=== PATIENT | male | born 1995 | race Caucasian/White ===

== ENCOUNTER 2023-07-14 06:43 | Emergency (ER) | payer SELFPAY ==
[~2023-07-14] VITALS: Ht 185.4 cm; Wt 118.0 kg
[2023-07-14] MEDS ORDERED: ALBUTEROL (0.083%) 2.5MG/3ML NEB HHN STA (08:15)
[2023-07-14] MEDS ORDERED: IPRATROPIUM BROMIDE (0.02%) 0.5MG/2.5ML NEB HHN STA (08:15)
[2023-07-14] MEDS ORDERED: PREDNISONE 20MG TABLET PO STA (08:15)
[2023-07-14 09:05] VITALS: PULSE 88; RESP 20; O2SAT 97
[2023-07-14] MEDS ORDERED: ALBU6.7H15 INH (10:14)
[2023-07-14] MEDS ORDERED: BECL10.62 INH (10:14)
[2023-07-14] MEDS ORDERED: MED4 MT (10:15)
[2023-07-14 10:54] VITALS: BP 133/78; PULSE 82; RESP 18; TEMP 98.2
== END 2023-07-14 10:57 | disposition home or self-care (01) ==
LOC: ER 06:43
DX: J45.909 Unspecified asthma, uncomplicated (principal)
CPT/HCPCS: 99285; J7512; Z7610